=== PATIENT | female | born 1990 ===

== ENCOUNTER 2021-11-05 08:24 | Day surgery (SDC) | payer OTHER ==
[~2021-11-05] VITALS: Ht 167.6 cm; Wt 74.2 kg
[~2021-11-05 08:24] MED LIST: ALBU90OI6 INH; AZIT250 PO; BIRTH CONTROL; Buspirone HCl7.5 MG PO; CITA20 PO; CYCL10 PO; GABA100 PO; GABA400 PO; HYDACE5 PO; HYDPAM25 PO; IBUP800 PO; LAMO100 PO; LAMO25 PO; Minipress1 MG PO; NAPR500 PO; OLAN2.5 PO; ONDA4 PO; OXYACE5T PO; PRAZ2 PO; QUET25 PO; RXCYCL10 PO; RXONDA4ODT MM; TAMS.4ER PO; Verotin-Gr Cap1 EACH PO
[2021-11-05 09:10] LABS: BASOPHILS ABSOLUTE AUTO 0.02 K/mm3 (0.00-0.23); BASOPHILS PERCENT AUTO 0 % (0-2); EOSINOPHILS ABSOLUTE AUTO 0.01 K/mm3 (0.00-0.68); EOSINOPHILS PERCENT AUTO 0 % (0-6); Hematocrit 35.5 % (33.0-51.0); Hemoglobin 12.3 g/dL (11.5-16.0); IMMATURE GRAN ABSOLUTE AUTO 0.01 K/mm3 (0.00-0.10); IMMATURE GRAN PERCENT AUTO 0 % (0-1); LYMPHOCYTES ABSOLUTE AUTO 1.42 K/mm3 (0.84-5.20); LYMPHOCYTES PERCENT AUTO 31 % (21-46); MONOCYTES PERCENT AUTO 9 % (4-13); Mean Corpuscular HGB 31.8 pg (26.0-34.0); Mean Corpuscular HGB Conc 34.6 g/dL (31.5-36.5); Mean Corpuscular Volume 92 fL (80-100); Mean Platelet Volume 11.5 fL (9.1-12.4); NEUTROPHILS PERCENT AUTO 60 % (41-73); Platelet Count 159 K/mm3 (150-400); RDW Coefficient Variation 13.4 % (11.7-14.2); RDW Standard Deviation 44.8 fL (35.1-46.3); Red Blood Cell Count 3.87 M/mm3 (3.80-5.20); White Blood Cell Count 4.66 K/mm3 (4.00-11.30)
--- NOTE | 2021-11-05 09:48 | NUR ---
Ambulatory in Day SurgeryBair Paws warming gown applied. Surgical site prepped with 2% Chlorhexidine cloth wipe. History, Chart, Medications and Allergies reviewed before start of procedure. Ethics consult requested and facilitated. I reviewed the chart, relevant statutory regulations and ethical principles and provided advisory support and History, Chart, Medications and Allergies reviewed before start of procedure.Lungs clear T/O to Auscultation.Ambulatory in Day Surgery Pre-Op teaching done. Pt verbalizes understanding. Patient States Post-Procedure ride home has been arranged. Auscultation. Patient confirms NPO status and agrees with scheduled surgery. Pre-Op teaching done. Pt verbalizes understanding. Patient States Post-Procedure ride home has been arranged.
--- NOTE | 2021-11-05 10:19 | NUR ---
11/05/21 [place]9 [place] 200 MCG OF METHERGINE ADMINISTERED VIA IV BY ANESTHESIA AT [phone] PER MD REQUEST.
--- NOTE | 2021-11-05 11:49 | NUR ---
DISCHARGE SUMMARY PT A&OX4, VSS/RA, JERICHO PO, VOIDED, AMB INDEPENDENTLY, PAIN MED GIVEN-PAIN 05/06, IV DC'D. DC INS PROVIDED, PT REP UNDERSTANDING THOSE INSTRUCTIONS. LEFT-DECLINED WC, TO GO HOME WITH /GALLEY COOK WITH DC INS & NARC SCRIPT, RN PROVIDED TO PREOP
== END 2021-11-05 11:35 | disposition home or self-care (01) ==
LOC: ORSCMMR 08:24 → ORD 09:45 → ORSCMMR 09:45
PROVIDERS: Obstetrics & Gynecology
PROC: 10D17ZZ Extraction of Products of Conception, Retained, Via Natural or Artificial Opening (ICD-10-PCS; principal; 2021-11-05 09:45)
DX: O02.1 Missed abortion (principal); Z79.899 Other long term (current) drug therapy
CPT/HCPCS: 36415; 84702; 85025; 88305; A9270; J0690; J1100; J2210; J2250; J2405; J2704; J3010; J7120

== ENCOUNTER 2023-04-11 18:50 | Emergency (ER) | payer OTHER ==
[~2023-04-11] VITALS: Ht 167.6 cm; Wt 68.0 kg
[2023-04-11 19:01] VITALS: BP 134/78
[2023-04-11] MEDS ORDERED: AMOCLA875 PO (20:21)
== END 2023-04-11 20:30 | disposition home or self-care (01) ==
LOC: ER 18:50
DX: K04.7 Periapical abscess without sinus (principal); F31.9 Bipolar disorder, unspecified; Z91.040 Latex allergy status; Z88.5 Allergy status to narcotic agent; Z88.8 Allergy status to other drugs, medicaments and biological substances; Z91.048 Other nonmedicinal substance allergy status; Z79.899 Other long term (current) drug therapy
CPT/HCPCS: A9270

== ENCOUNTER 2024-12-08 10:05 | Emergency (ER) | payer OTHER ==
[~2024-12-08] VITALS: Ht 167.6 cm; Wt 64.4 kg
[~2024-12-08 10:05] MED LIST changes: +AMOCLA875 PO
[2024-12-08 10:25] VITALS: BP 122/82
[2024-12-08 10:40] LABS: BASOPHILS ABSOLUTE AUTO 0.01 K/mm3 (0.00-0.23); BASOPHILS PERCENT AUTO 0 % (0-2); EOSINOPHILS ABSOLUTE AUTO 0.00 K/mm3 (0.00-0.68); EOSINOPHILS PERCENT AUTO 0 % (0-6); Hematocrit 36.3 % (33.0-51.0); Hemoglobin 12.2 g/dL (11.5-16.0); IMMATURE GRAN ABSOLUTE AUTO 0.01 K/mm3 (0.00-0.10); IMMATURE GRAN PERCENT AUTO 0 % (0-1); LYMPHOCYTES ABSOLUTE AUTO 1.03 K/mm3 (0.84-5.20); LYMPHOCYTES PERCENT AUTO 27 % (21-46); MONOCYTES ABSOLUTE AUTO 0.33 K/mm3 (0.16-1.47); MONOCYTES PERCENT AUTO 9 % (4-13); Mean Corpuscular HGB Conc 33.6 g/dL (31.5-36.5); Mean Corpuscular Volume 93 fL (80-100); NEUTROPHILS ABSOLUTE AUTO 2.44 K/mm3 (1.96-9.15); NEUTROPHILS PERCENT AUTO 64 % (41-73); NRBC ABSOLUTE 0.00 K/mm3 (0.00-0.02); NRBC Auto 0.0 /100 WBC (0.0-0.2); Platelet Count 161 K/mm3 (150-400); RDW Coefficient Variation 12.5 % (11.7-14.2); RDW Standard Deviation 42.7 fL (35.1-46.3)
[2024-12-08 10:52] LABS: Alanine Aminotransfer (ALT/SGP 25.0 U/L (12-78); Albumin, Blood 4.0 g/dL (3.4-5.0); Albumin/Globulin Ratio 1.2 (0.8-1.8); Anion Gap 10.0 mmol/L (3-11); Aspartate Aminotrans (AST/SGOT 22.0 U/L (12-37); Bilirubin, Total 0.3 mg/dL (0.1-1.0); Blood Urea Nitrogen 11.0 mg/dL (8-24); CO2, Blood 27.0 mmol/L (21-32); Calcium, Blood 8.8 mg/dL (8.5-10.1); Chloride, Blood 104.0 mmol/L (98-108); Creatinine, Blood 0.97 mg/dL (0.40-1.00); Globulin, Blood 3.4 g/dL (2.2-4.0); Glucose, Blood 118.0 mg/dL (70-99); Potassium, Blood 4.1 mmol/L (3.5-5.5); Sodium, Blood 137.0 mmol/L (136-145); Total Protein, Blood 7.4 g/dL (6.4-8.2)
== END 2024-12-08 12:20 | disposition home or self-care (01) ==
LOC: ER 10:05
PROVIDERS: Emergency Medicine
DX: N64.4 Mastodynia (principal); R07.89 Other chest pain
CPT/HCPCS: 71046; 80053; 83690; 84484; 85025; 93005; 93010; 99283-25

== ENCOUNTER 2025-01-07 11:55 | Emergency (ER) | payer OTHER ==
[~2025-01-07] VITALS: Ht 167.6 cm; Wt 67.1 kg
[2025-01-07 12:39] LABS: BASOPHILS ABSOLUTE AUTO 0.01 K/mm3 (0.00-0.23); BASOPHILS PERCENT AUTO 0 % (0-2); EOSINOPHILS ABSOLUTE AUTO 0.00 K/mm3 (0.00-0.68); EOSINOPHILS PERCENT AUTO 0 % (0-6); Hematocrit 34.9 % (33.0-51.0); Hemoglobin 11.8 g/dL (11.5-16.0); IMMATURE GRAN ABSOLUTE AUTO 0.01 K/mm3 (0.00-0.10); IMMATURE GRAN PERCENT AUTO 0 % (0-1); LYMPHOCYTES ABSOLUTE AUTO 1.11 K/mm3 (0.84-5.20); LYMPHOCYTES PERCENT AUTO 29 % (21-46); MONOCYTES ABSOLUTE AUTO 0.32 K/mm3 (0.16-1.47); MONOCYTES PERCENT AUTO 8 % (4-13); Mean Corpuscular HGB Conc 33.8 g/dL (31.5-36.5); Mean Corpuscular Volume 92 fL (80-100); NEUTROPHILS ABSOLUTE AUTO 2.38 K/mm3 (1.96-9.15); NEUTROPHILS PERCENT AUTO 62 % (41-73); NRBC ABSOLUTE 0.00 K/mm3 (0.00-0.02); NRBC Auto 0.0 /100 WBC (0.0-0.2); Platelet Count 178 K/mm3 (150-400); RDW Coefficient Variation 12.8 % (11.7-14.2); RDW Standard Deviation 42.5 fL (35.1-46.3)
[2025-01-07 13:03] LABS: Beta HCG, Quantitative, Serum <1 mIU/mL (0-3)
[2025-01-07 13:04] LABS: Alanine Aminotransfer (ALT/SGP 25 U/L (12-78); Albumin, Blood 4.4 g/dL (3.4-5.0); Albumin/Globulin Ratio 1.4 (0.8-1.8); Anion Gap 9 mmol/L (3-11); Aspartate Aminotrans (AST/SGOT 23 U/L (12-37); Bilirubin, Total 0.6 mg/dL (0.1-1.0); Blood Urea Nitrogen 10 mg/dL (8-24); CO2, Blood 26 mmol/L (21-32); Calcium, Blood 9.4 mg/dL (8.5-10.1); Chloride, Blood 104 mmol/L (98-108); Creatinine, Blood 0.92 mg/dL (0.40-1.00); Globulin, Blood 3.1 g/dL (2.2-4.0); Glucose, Blood 106 mg/dL (70-99); Potassium, Blood 3.6 mmol/L (3.5-5.5); Sodium, Blood 135 mmol/L (136-145); Total Protein, Blood 7.5 g/dL (6.4-8.2)
[2025-01-07 15:07] VITALS: BP 144/79
[2025-01-07] MEDS ORDERED: NS 1,000 ML IV SCH (16:00)
[2025-01-07] MEDS ORDERED: Prochlorperazine Edisylate 10 mg Vial IV ONE (16:00)
[2025-01-07] MEDS ORDERED: DiphenhydrAMINE HCl 50 MG/ML 1ML Vial IV ONE (16:00)
[2025-01-07] MEDS ORDERED: Ketorolac Tromethamine 15mg Vial IV ONE (16:00)
[2025-01-07] MEDS ORDERED: Dexamethasone Sod Phos 10 MG/ML 1ML VIAL IV ONE (16:00)
== END 2025-01-07 17:32 | disposition home or self-care (01) ==
LOC: ER 11:55
PROVIDERS: Student in an Organized Health Care Education/Training Program
DX: R51.9 Headache, unspecified (principal); R07.9 Chest pain, unspecified; Z88.8 Allergy status to other drugs, medicaments and biological substances; Z91.048 Other nonmedicinal substance allergy status; Z88.5 Allergy status to narcotic agent; Z91.040 Latex allergy status; Z91.09 Other allergy status, other than to drugs and biological substances; Z79.899 Other long term (current) drug therapy
CPT/HCPCS: 71046; 80053; 84484; 84702; 85025; 93005; 93010; 96361; 96374; 96375; 99285-25; J0780; J1100; J1200; J1885; J7030